=== PATIENT | female | born 2005 | race Asian ===

== ENCOUNTER → 2025-01-27 | Outpatient (CLI) | payer BC, SELFPAY ==
[2025-01-27 11:19] LABS: Misc Send Out* See Sep Rpt; Quantiferon-TB* See Sep Rpt
[2025-01-27 12:18] LABS: Hepatitis B Surface Ab NonReact(Not Immune) (Immune)
== END | disposition home or self-care (01) ==
PROVIDERS: PCP Family Medicine; Referring Provider Family Medicine; Visit Provider Family Medicine
DX: Z00.00 Encounter for general adult medical examination without abnormal findings (principal)
CPT/HCPCS: 36415; 86480; 86706